=== PATIENT | male | born 1975 | race Two or more races ===

== ENCOUNTER 2019-06-17 12:41 | Outpatient (CLI) | payer MEDICAID ==
--- NOTE | 2019-06-17 18:15 | Consultation ---
DATE OF CONSULTATION: CONSULTING PHYSICIAN: Tawanda Roman M.D. CHIEF COMPLAINT: Rectal bleeding, rectal pain. HISTORY OF PRESENT ILLNESS: This is a 44-year-old male with past medical history of hemorrhoids, presented with complaint of 1 month of constipation and abdominal pain and rectal pain when he had a bowel movement. PAST MEDICAL HISTORY: 1. Questionable colitis. 2. Gastric ulcers. PAST SURGICAL HISTORY: None. MEDICATIONS: He is taking MiraLAX, mineral oil, and Viagra. SOCIAL HISTORY: The patient drinks alcohol on social occasions. Denies any tobacco usage. Denies any drug usage. ALLERGIES: To tetracycline. REVIEW OF SYSTEMS: A 10-point review of systems was performed and pertinent positives in HPI. PHYSICAL EXAMINATION: GENERAL: This is a well-developed male in no acute distress. HEENT: Normocephalic and atraumatic. Sclerae anicteric. NECK: Supple. No evidence of obvious lymphadenopathy. CARDIOVASCULAR: Regular rate and rhythm. Plus S1 and S2. No obvious murmur. LUNGS: Clear to auscultation bilaterally. ABDOMEN: Positive bowel sounds. Soft, nontender. No rebound. No guarding. No peritoneal sign. EXTREMITIES: No cyanosis. No clubbing. No edema RECTAL: Showed evidence of external, internal hemorrhoids without any obvious fissures. ASSESSMENT: Rectal pain, most likely from internal, external hemorrhoids. PLAN: We treat the constipation with Linzess 145 mcg p.o. daily, sitz bath, Anusol-HC cream. I will recheck the patient if the above does not work. Tawanda Roman M.D. DR: AMBER JOB#: [id number] CC:
== END 2019-06-17 14:41 | disposition home or self-care (01) ==
LOC: PAN 12:41
DX: K62.5 Hemorrhage of anus and rectum (principal); K64.4 Residual hemorrhoidal skin tags; Z79.899 Other long term (current) drug therapy
CPT/HCPCS: 99202

== ENCOUNTER 2019-08-05 13:54 | Outpatient (CLI) | payer MEDICAID ==
[2019-08-05 14:20] VITALS: BP 116/78
--- NOTE | 2019-08-05 14:47 | General Progress Note ---
Assessment/Plan Problem List: (1) Rectal pain ICD Codes: K62.89 - Other specified diseases of anus and rectum SNOMED: 37672508 (2) Acute hemorrhoid ICD Codes: K64.9 - Unspecified hemorrhoids SNOMED: 1730148, 69731803 Assessment/Plan: anusol HC Amitiza plan colonoscopy Subjective ROS Limited/Unobtainable: Yes Objective General Appearance: alert EENT: normal ENT inspection Neck: supple Cardiovascular: normal rate Respiratory/Chest: lungs clear Abdomen: normal bowel sounds, non tender, soft Extremities: non-tender Tawanda Roman MD Aug 05, 2019 14:47
== END 2019-08-05 14:51 | disposition home or self-care (01) ==
LOC: PAN 13:54
DX: K62.89 Other specified diseases of anus and rectum (principal); K64.9 Unspecified hemorrhoids
CPT/HCPCS: 99212